=== PATIENT | male | born 1945 | race Caucasian/White ===

== ENCOUNTER 2020-09-08 09:44 | Emergency (ER) | payer MEDICARE, BC ==
[~2020-09-08] VITALS: Ht 185.4 cm; Wt 98.9 kg
[~2020-09-08 09:44] MED LIST: ATENOLOL50 MG PO; HYDROCODONE BIT1 T11 PO; LISINOPRIL-HCTZ 20-1
== END 2020-09-08 13:42 | disposition home or self-care (01) ==
LOC: ED 09:44
DX: S61.411A Laceration without foreign body of right hand, initial encounter (principal); S60.221A Contusion of right hand, initial encounter; Z79.899 Other long term (current) drug therapy; X58.XXXA Exposure to other specified factors, initial encounter; Y93.89 Activity, other specified; Y92.89 Other specified places as the place of occurrence of the external cause; Y99.8 Other external cause status